=== PATIENT | male | born 1970 | race Caucasian/White ===

== ENCOUNTER 2016-08-22 18:05 | Emergency (ER) | payer SELFPAY ==
[~2016-08-22] VITALS: Ht 180.3 cm; Wt 90.0 kg
[2016-08-22] MEDS ORDERED: ONDANSETRON ODT 4 MG PO ONE (19:00)
[2016-08-22] MEDS ORDERED: SODIUM CHLORIDE 0.9% 1,000ML IVBOLUS ONE (19:00)
[2016-08-22] MEDS ORDERED: THIAMINE 100MG TABLET PO ONE (19:00)
[2016-08-22] MEDS ORDERED: LORazepam 2 MG/ML, 1ML IVPush ONE (19:00)
[2016-08-22 19:24] LABS: ASPARTATE AMINO TRANSFERASE 56 U/L (15-37); BLOOD UREA NITROGEN 9 mg/dL (7-18)
[2016-08-22] MEDS ORDERED: ONDANSETRON ODT 4 MG ONE (20:36)
[2016-08-22] MEDS ORDERED: THIAMINE 100MG TABLET ONE (20:36)
[2016-08-22] MEDS ORDERED: LORazepam 2 MG/ML, 1ML ONE (20:37)
[2016-08-22 22:43] VITALS: BP 121/79
== END 2016-08-22 22:44 | disposition home or self-care (01) ==
LOC: ED 22:39
DX: F10.239 Alcohol dependence with withdrawal, unspecified (principal); F10.229 Alcohol dependence with intoxication, unspecified
CPT/HCPCS: 36415; 80053; 83690; 85025; 93005; 96361; 96374; 99285; J2060; J7030; Q0162

== ENCOUNTER 2016-12-03 09:25 | Emergency (ER) | payer OTHER ==
[~2016-12-03] VITALS: Ht 180.3 cm; Wt 84.4 kg
[2016-12-03 10:39] LABS: HEMATOCRIT 41.3 % (39.2-51.8); HEMOGLOBIN 13.9 g/dL (13.7-18.0); WHITE BLOOD COUNT 7.6 x10^3/uL (3.4-10)
[2016-12-03 10:51] LABS: BLOOD UREA NITROGEN 8 mg/dL (7-18)
[2016-12-03 10:57] LABS: ASPARTATE AMINO TRANSFERASE 14 U/L (15-37)
[2016-12-03 11:34] VITALS: BP 145/106
== END 2016-12-03 11:36 | disposition home or self-care (01) ==
LOC: ED 10:25
DX: R60.0 Localized edema (principal)
CPT/HCPCS: 36415; 71010; 80053; 83880; 85025; 93005; 99285

== ENCOUNTER 2018-06-01 10:40 | Inpatient (IN) | payer OTHER ==
[~2018-06-01] VITALS: Ht 180.3 cm; Wt 89.5 kg
[2018-06-01] MEDS ORDERED: LORazepam 2 MG/ML, 1ML ONE (11:23)
[2018-06-01] MEDS ORDERED: THIAMINE 100MG TABLET ONE (11:23)
[2018-06-01] MEDS ORDERED: ONDANSETRON 2MG/ML, 2ML ONE (11:23)
[2018-06-01] MEDS: LORazepam 2 MG/ML, 1ML IVPush PRN ×2 (11:28→11:53)
[2018-06-01] MEDS ORDERED: ONDANSETRON 2MG/ML, 2ML IVPush ONE (11:30)
[2018-06-01] MEDS ORDERED: SODIUM CHLORIDE FLUSH 10ML SYR IVF ONE (11:30)
[2018-06-01] MEDS ORDERED: THIAMINE 100MG TABLET PO ONE (11:30)
[2018-06-01 11:41] LABS: BASOPHILS # (AUTO) 0.03 x10^3/uL (0-0.1); BASOPHILS % (AUTO) 0 % (0-1); EOSINOPHILS # (AUTO) 0.02 x10^3/uL (0-0.4); EOSINOPHILS % (AUTO) 0 % (1-7); LYMPHOCYTES % (AUTO) 16 % (22-44); MD NO; MEAN CORPUSCULAR HEMOGLOBIN 34.9 pg (27.5-34.5); MEAN CORPUSCULAR HGB CONC 34.8 g/dL (33.2-36.2); MEAN CORPUSCULAR VOLUME 100.2 fL (81-97); MEAN PLATELET VOLUME 8.2 fL (7.4-10.4); MONOCYTES # (AUTO) 0.74 x10^3/uL (0.2-0.8); MONOCYTES % (AUTO) 9 % (2-9); NEUTROPHILS # (AUTO) 6.04 x10^3/uL (1.8-6.8); NEUTROPHILS % (AUTO) 74 % (42-75); PLATELET COUNT 136 x10^3/uL (130-400); RED CELL DISTRIBUTION WIDTH 13.9 % (9.4-14.8)
[2018-06-01 11:53] LABS: ALBUMIN 3.9 g/dL (3.4-5.0); ANION GAP 9 mmol/L (5-15); CHLORIDE 107 mmol/L (98-107)
--- NOTE | 2018-06-01 11:53 | NUR ---
SECOND DOSE OF 1MG ATIVAN GIVEN FOR ETOH WITHDRAWL SYMPTOMS, HOWEVER PATIENT IS IMPROVING AND REPORTS FEELING BETTER. CIWA SCORE OF 7 BEFORE SECOND DOSE OF ATIVAN.
[2018-06-01 11:57] LABS: ALANINE AMINOTRANSFERASE 45 U/L (12-78); ALKALINE PHOSPHATASE 65 U/L (45-117); BILIRUBIN,TOTAL 0.7 mg/dL (0.2-1.0); CREATININE 0.79 mg/dL (0.7-1.3); TOTAL PROTEIN 7.8 g/dL (6.4-8.2)
--- NOTE | 2018-06-01 12:49 | NUR ---
VS UPDATED AND WNL. PT RESTING WITH NO COMPLAINTS. OFFERRED WARM BLANKET BUT PATIENT DENIED. SIDE RAILS UP X 2 AND CALL BUTTON WITHIN REACH.
--- NOTE | 2018-06-01 13:20 | NUR ---
[facility] TELEPHONE HAND-OFF REPORT GIVEN TO RENY ROY. PT READY TO GO TO HOSPITAL ROOM.
[2018-06-01] MEDS ORDERED: POLYETHYLENE GLYCOL 17 GM PACKET PO PRN (13:30)
[2018-06-01] MEDS ORDERED: ONDANSETRON ODT 4 MG PO PRN (13:30)
[2018-06-01] MEDS ORDERED: ONDANSETRON 2MG/ML, 2ML IVPush PRN (13:30)
[2018-06-01] MEDS ORDERED: LABETALOL 5MG/ML, 20ML IVPush PRN (13:30)
[2018-06-01] MEDS ORDERED: LORazepam 1MG TABLET PO PRN ×2 (13:30)
[2018-06-01] MEDS ORDERED: POTASSIUM CHLORIDE 20 MEQ, MAGNESIUM SULFATE 1 GM, FOLIC ACID 1 MG, THIAMINE 200 MG, MV... IV SCH (13:30)
[2018-06-01] MEDS ORDERED: LORazepam 2 MG/ML, 1ML IV PRN ×5 (13:30)
[2018-06-01 13:36] LABS: FREE T4 (FREE THYROXINE) 0.75 ng/dL (0.76-1.46)
[2018-06-01 14:31] VITALS: BP 145/85
[2018-06-01] MEDS: SODIUM CHLORIDE 0.9% 1,000 ML IV SCH (14:43)
[2018-06-01] MEDS ORDERED: CHLORDIAZEPOXIDE 25 MG CAPSULE PO PRN (15:00)
[2018-06-01] MEDS: POTASSIUM CHLORIDE 20 MEQ, MAGNESIUM SULFATE 1 GM, FOLIC ACID 1 MG, MVI ADULT 10 ML in ... IV SCH (15:01)
[2018-06-01] MEDS ORDERED: NICOTINE 7 MG/24 HR PATCH.TD24 TD SCH (15:30)
[2018-06-01] MEDS: LORazepam 1MG TABLET PO PRN (17:42)
[2018-06-01 19:28] VITALS: BP 115/72
[2018-06-01] MEDS ORDERED: FAMOTIDINE 20 MG/2 ML IVPush SCH (21:00)
[2018-06-02] MEDS: LORazepam 1MG TABLET PO PRN ×2 (00:03→07:07)
[2018-06-02] MEDS: SODIUM CHLORIDE 0.9% 1,000 ML IV SCH ×3 (01:00→17:03)
[2018-06-02 02:17] VITALS: BP 120/70
[2018-06-02 04:26] LABS: BASOPHILS # (AUTO) 0.04 x10^3/uL (0-0.1); BASOPHILS % (AUTO) 1 % (0-1); EOSINOPHILS # (AUTO) 0.17 x10^3/uL (0-0.4); EOSINOPHILS % (AUTO) 2 % (1-7); LYMPHOCYTES # (AUTO) 1.47 x10^3/uL (1-3.4); LYMPHOCYTES % (AUTO) 21 % (22-44); MD NO; MEAN CORPUSCULAR HEMOGLOBIN 34.6 pg (27.5-34.5); MEAN CORPUSCULAR HGB CONC 33.8 g/dL (33.2-36.2); MEAN CORPUSCULAR VOLUME 102.2 fL (81-97); MEAN PLATELET VOLUME 8.5 fL (7.4-10.4); MONOCYTES # (AUTO) 0.91 x10^3/uL (0.2-0.8); MONOCYTES % (AUTO) 13 % (2-9); NEUTROPHILS # (AUTO) 4.55 x10^3/uL (1.8-6.8); NEUTROPHILS % (AUTO) 64 % (42-75); PLATELET COUNT 120 x10^3/uL (130-400); RED BLOOD COUNT 3.78 x10^6/uL (4.38-5.82); RED CELL DISTRIBUTION WIDTH 14.1 % (9.4-14.8)
[2018-06-02 05:04] LABS: ALANINE AMINOTRANSFERASE 33 U/L (12-78); ALBUMIN 3.1 g/dL (3.4-5.0); ALKALINE PHOSPHATASE 49 U/L (45-117); ANION GAP 6 mmol/L (5-15); BILIRUBIN,TOTAL 0.7 mg/dL (0.2-1.0); CALCIUM 7.7 mg/dL (8.5-10.1); CHLORIDE 110 mmol/L (98-107); CREATININE 0.81 mg/dL (0.7-1.3); FREE T4 (FREE THYROXINE) 0.69 ng/dL (0.76-1.46); TOTAL PROTEIN 6.4 g/dL (6.4-8.2)
[2018-06-02 08:30] VITALS: BP 133/82
[2018-06-02] MEDS: FAMOTIDINE 20 MG TABLET PO SCH ×2 (09:13→21:11)
[2018-06-02] MEDS: THIAMINE 100MG TABLET PO SCH (09:13)
[2018-06-02] MEDS: SENNA/DOCUSATE TABLET PO SCH (09:13)
[2018-06-02] MEDS ORDERED: CYANOCOBALAMIN 1,000 MCG/ML, 1ML IM ONE (09:30)
[2018-06-02] MEDS: CHLORDIAZEPOXIDE 25 MG CAPSULE PO SCH ×3 (09:54→21:11)
[2018-06-02] MEDS: LORazepam 0.5MG TABLET PO PRN ×4 (09:54→21:18)
[2018-06-02] MEDS: NICOTINE 14MG/24 HR PATCH.TD24 TD SCH (09:55)
[2018-06-02 13:43] VITALS: BP 150/76
[2018-06-02] MEDS: POTASSIUM CHLORIDE 20 MEQ, MAGNESIUM SULFATE 1 GM, FOLIC ACID 1 MG, MVI ADULT 10 ML in ... IV SCH (17:02)
[2018-06-02 19:30] VITALS: BP 92/55
[2018-06-03 01:15] VITALS: BP 134/85
[2018-06-03] MEDS: SODIUM CHLORIDE 0.9% 1,000 ML IV SCH (06:00)
[2018-06-03] MEDS: LORazepam 1MG TABLET PO PRN ×4 (06:38→14:48)
[2018-06-03 07:26] VITALS: BP 138/83
[2018-06-03] MEDS: SENNA/DOCUSATE TABLET PO SCH (09:18)
[2018-06-03] MEDS: THIAMINE 100MG TABLET PO SCH (09:19)
[2018-06-03] MEDS: CHLORDIAZEPOXIDE 25 MG CAPSULE PO SCH ×2 (09:19→16:47)
[2018-06-03] MEDS: FAMOTIDINE 20 MG TABLET PO SCH (09:20)
[2018-06-03] MEDS: NICOTINE 14MG/24 HR PATCH.TD24 TD SCH (09:20)
[2018-06-03 12:26] VITALS: BP 144/95
[2018-06-03] MEDS: POTASSIUM CHLORIDE 20 MEQ, MAGNESIUM SULFATE 1 GM, FOLIC ACID 1 MG, MVI ADULT 10 ML in ... IV SCH (14:43)
== END 2018-06-03 17:42 | disposition left against medical advice (07) | DRG 392 ==
LOC: ED 11:25 → EDIP 12:38 → 4WST 13:45
PROVIDERS: ADMIT Hospitalist; ATTEND Hospitalist
DX: K29.20 Alcoholic gastritis without bleeding (principal); F10.121 Alcohol abuse with intoxication delirium; D75.89 Other specified diseases of blood and blood-forming organs; E86.0 Dehydration; F17.200 Nicotine dependence, unspecified, uncomplicated; F41.9 Anxiety disorder, unspecified; Y90.1 Blood alcohol level of 20-39 mg/100 ml; I10 Essential (primary) hypertension; Z87.11 Personal history of peptic ulcer disease; Z53.21 Procedure and treatment not carried out due to patient leaving prior to being seen by health care provider
CPT/HCPCS: 36415; 99285; J7042; 80053; 80307; 82607; 83735; 84100; 84439; 84443; 85025; 93005; 96374; 96375; G0378; J2405; J3475; J3480; J2060; J3420; J7030

== ENCOUNTER 2019-09-17 11:21 | Emergency (ER) | payer MEDICAID ==
[~2019-09-17] VITALS: Ht 180.3 cm; Wt 84.7 kg
[2019-09-17 11:24] VITALS: BP 127/86
--- NOTE | 2019-09-17 11:40 | NUR ---
PT INQUIRING ABOUT COVID TEST. MD AT BEDSIDE.
[2019-09-17] MEDS ORDERED: DEXAMETHASONE 4 MG TABLET ONE (11:47)
[2019-09-17] MEDS ORDERED: DEXAMETHASONE 4 MG TABLET PO ONE (12:00)
--- NOTE | 2019-09-17 12:11 | NUR ---
Patient/Caregiver given discharge instructions and they have confirmed that they understand the instructions. Patient ambulatory with steady gait.
== END 2019-09-17 12:13 | disposition home or self-care (01) ==
LOC: ED 11:48
DX: J02.8 Acute pharyngitis due to other specified organisms (principal); Z20.828 Contact with and (suspected) exposure to other viral communicable diseases; T78.3XXA Angioneurotic edema, initial encounter; F17.200 Nicotine dependence, unspecified, uncomplicated; B97.89 Other viral agents as the cause of diseases classified elsewhere
CPT/HCPCS: 99283; U0001

== ENCOUNTER 2019-09-22 09:16 | Emergency (ER) | payer MEDICAID ==
[~2019-09-22] VITALS: Ht 180.3 cm; Wt 86.1 kg
[2019-09-22 09:18] VITALS: BP 116/70
[2019-09-22] MEDS ORDERED: HYDROcodone/APAP 5/325 TABLET ONE (09:41)
[2019-09-22] MEDS ORDERED: KETOROLAC 30 MG/1 ML ONE (09:41)
[2019-09-22] MEDS ORDERED: HYDROcodone/APAP 5/325 TABLET PO ONE (10:00)
[2019-09-22] MEDS ORDERED: KETOROLAC 30 MG/1 ML IM ONE (10:00)
[2019-09-22 10:13] LABS: ALANINE AMINOTRANSFERASE 37 U/L (12-78); ALBUMIN 3.4 g/dL (3.4-5.0); ANION GAP 10 mmol/L (5-15); CALCIUM 8.9 mg/dL (8.5-10.1); CHLORIDE 108 mmol/L (98-107); CREATININE 0.88 mg/dL (0.7-1.3)
[2019-09-22 10:17] LABS: ALKALINE PHOSPHATASE 71 U/L (45-117); BILIRUBIN,TOTAL 0.7 mg/dL (0.2-1.0); TOTAL PROTEIN 7.5 g/dL (6.4-8.2)
[2019-09-22 10:25] LABS: BASOPHILS # (AUTO) 0.03 x10^3/uL (0-0.1); BASOPHILS % (AUTO) 0 % (0-1); EOSINOPHILS % (AUTO) 1 % (1-7); LYMPHOCYTES # (AUTO) 1.67 x10^3/uL (1-3.4); LYMPHOCYTES % (AUTO) 17 % (22-44); MD NO; MEAN CORPUSCULAR HEMOGLOBIN 34.3 pg (27.5-34.5); MEAN CORPUSCULAR HGB CONC 33.9 g/dL (33.2-36.2); MEAN CORPUSCULAR VOLUME 101.3 fL (81-97); MEAN PLATELET VOLUME 8.6 fL (7.4-10.4); MONOCYTES # (AUTO) 1.13 x10^3/uL (0.2-0.8); MONOCYTES % (AUTO) 11 % (2-9); NEUTROPHILS % (AUTO) 71 % (42-75); PLATELET COUNT 195 x10^3/uL (130-400); RED BLOOD COUNT 4.39 x10^6/uL (4.38-5.82); RED CELL DISTRIBUTION WIDTH 14.4 % (9.4-14.8)
== END 2019-09-22 11:04 | disposition home or self-care (01) ==
LOC: ED 10:01
DX: M10.071 Idiopathic gout, right ankle and foot (principal); M79.674 Pain in right toe(s); M13.171 Monoarthritis, not elsewhere classified, right ankle and foot; F17.200 Nicotine dependence, unspecified, uncomplicated
CPT/HCPCS: 36415; 73630; 80053; 84550; 85025; 96372; 99284; J1885

== ENCOUNTER 2019-11-18 14:00 | Emergency (ER) | payer MEDICAID ==
[~2019-11-18] VITALS: Ht 180.3 cm; Wt 86.8 kg
[2019-11-18 14:07] VITALS: BP 144/112
--- NOTE | 2019-11-18 14:24 | NUR ---
BRODY INIGUEZ AT BEDSIDE FOR INITIAL ASSESSMENT.
--- NOTE | 2019-11-18 14:55 | NUR ---
pt presents to ED with c/o right groin pain and penile discharge, no mass or bulge noted to groin on exam. pt is a&o, resps even and unlabored, nadn. pt instructed to provide clean catch ua, supplies at bedside. pt awaiting us, lab and dispo. report given to RENY Elizalde who is assuming care.
--- NOTE | 2019-11-18 14:58 | NUR ---
recieved report form Alison OGLESBY. pt aware urine sample is needed, has cup and wipes. will continue to monitor.
[2019-11-18 15:44] LABS: MICROSCOPIC NOT IND
[2019-11-18] MEDS ORDERED: CEFTRIAXONE 250 MG IM ONE (16:00)
[2019-11-18] MEDS ORDERED: AZITHROMYCIN 500 MG TABLET PO ONE (16:00)
[2019-11-18] MEDS ORDERED: CEFTRIAXONE 250 MG ONE (16:16)
[2019-11-18] MEDS ORDERED: AZITHROMYCIN 250 MG TABLET ONE (16:17)
--- NOTE | 2019-11-18 17:00 | NUR ---
PT ASKING NOW TO BE EVALUATED FOR HIS GOUT IN RIGHT FOOT. STATED HE IS UNABLE TO GET INTO SEE PRIMARY CARE DUE TO INSURANCE. ERP AWARE. WILL LOOK IN TO GOUT SITUATION.
== END 2019-11-18 18:03 | disposition home or self-care (01) ==
LOC: ED 15:58
DX: K40.90 Unilateral inguinal hernia, without obstruction or gangrene, not specified as recurrent (principal); R10.2 Pelvic and perineal pain; B35.6 Tinea cruris; R05 Cough
CPT/HCPCS: 76857; 81003; 87491; 87591; 96372; 99284; J0696

== ENCOUNTER 2019-12-11 05:43 | Day surgery (SDC) | payer MEDICAID ==
[~2019-12-11] VITALS: Ht 180.3 cm; Wt 85.2 kg
[~2019-12-11 05:43] MED LIST: HYDR-3240 PO; INDO25CA22 PO
[2019-12-11] MEDS ORDERED: LACTATED RINGERS 1,000 ML IV SCH (06:10)
[2019-12-11 06:21] VITALS: BP 125/92
[2019-12-11] MEDS ORDERED: CHLORHEXIDINE 15 ML UDC MM ONE (06:30)
[2019-12-11] MEDS ORDERED: LIDOCAINE-MPF 1%, 2ML INFIL ONE (06:30)
[2019-12-11] MEDS ORDERED: BUPIVACAINE/PF-EPI 0.5% 1:200K ONE (06:46)
[2019-12-11] MEDS ORDERED: DEXAMETHASONE 4 MG/ML, 1ML ONE (06:55)
[2019-12-11] MEDS ORDERED: NEOSTIGMINE 1 MG/ML, 10ML ONE (06:55)
[2019-12-11] MEDS ORDERED: FENTANYL PF 100 MCG/2ML ONE (06:55)
[2019-12-11] MEDS ORDERED: GLYCOPYRROLATE 0.2MG/1ML, 5ML ONE (06:55)
[2019-12-11] MEDS ORDERED: PROPOFOL 10 MG/ML, 20ML ONE (06:55)
[2019-12-11] MEDS ORDERED: MIDAZOLAM 1 MG/ML, 2ML ONE (06:55)
[2019-12-11] MEDS ORDERED: CEFAZOLIN 1,000 MG ONE (06:55)
[2019-12-11] MEDS ORDERED: ONDANSETRON 2MG/ML, 2ML ONE (06:55)
[2019-12-11] MEDS ORDERED: ROCURONIUM 10MG/ML,5ML ONE (06:55)
[2019-12-11] MEDS ORDERED: SUCCINYLCHOLINE 20 MG/ML, 10ML ONE (06:55)
[2019-12-11] MEDS ORDERED: MEPERIDINE/PF 25MG/0.5ML IVPush PRN (07:30)
[2019-12-11] MEDS ORDERED: OXYcodone 5 MG/5 ML ORAL.SOL UDC PO PRN (07:30)
[2019-12-11] MEDS ORDERED: HYDROcodone/APAP 7.5-325MG/15ML UDC PO PRN (07:30)
[2019-12-11] MEDS ORDERED: FENTANYL PF 100 MCG/2ML IV PRN (07:30)
[2019-12-11] MEDS ORDERED: HYDROmorphone 1 MG/ML, 1ML INJ IVPush PRN (07:30)
[2019-12-11] MEDS ORDERED: PROMETHAZINE 25 MG/ML, 1ML IVPush PRN (07:30)
== END 2019-12-11 07:45 | disposition home or self-care (01) ==
LOC: OUT 05:43
PROVIDERS: ATTEND Surgery
DX: K40.90 Unilateral inguinal hernia, without obstruction or gangrene, not specified as recurrent (principal); Z53.8 Procedure and treatment not carried out for other reasons; Z20.828 Contact with and (suspected) exposure to other viral communicable diseases; R21 Rash and other nonspecific skin eruption
CPT/HCPCS: 36415; 87635; J0330; J0690; J1100; J2405; J2704; J2710; J7120; J2250; J3010

== ENCOUNTER 2020-01-21 20:01 | Emergency (ER) | payer MEDICAID ==
[~2020-01-21] VITALS: Ht 180.3 cm; Wt 84.0 kg
[2020-01-21] MEDS ORDERED: MORPHINE SULFATE 4 MG/ML, 1ML ONE (20:16)
[2020-01-21] MEDS ORDERED: ONDANSETRON 2MG/ML, 2ML ONE (20:16)
[2020-01-21] MEDS ORDERED: PROPOFOL 10 MG/ML, 20ML ONE (20:16)
[2020-01-21] MEDS ORDERED: SODIUM CHLORIDE 0.9% 1,000ML IVBOLUS ONE (20:30)
[2020-01-21] MEDS ORDERED: ONDANSETRON 2MG/ML, 2ML IVPush ONE (20:30)
[2020-01-21] MEDS ORDERED: PROPOFOL 10 MG/ML, 20ML IVPush ONE (20:30)
[2020-01-21] MEDS ORDERED: MORPHINE SULFATE 4 MG/ML, 1ML IVPush PRN (20:30)
[2020-01-21] MEDS ORDERED: SODIUM CHLORIDE FLUSH 10ML SYR IVF ONE (20:30)
[2020-01-21 21:14] VITALS: BP 121/91
== END 2020-01-21 21:18 | disposition home or self-care (01) ==
LOC: ED 21:12
DX: S43.084A Other dislocation of right shoulder joint, initial encounter (principal); M10.9 Gout, unspecified; F17.200 Nicotine dependence, unspecified, uncomplicated; Z87.11 Personal history of peptic ulcer disease; X50.0XXA Overexertion from strenuous movement or load, initial encounter; Y93.89 Activity, other specified; Y92.89 Other specified places as the place of occurrence of the external cause; Y99.8 Other external cause status
CPT/HCPCS: 23650; 73030; 96374; 96375; 99152; 99285; J2270; J2405; J2704; J7030

== ENCOUNTER 2020-01-31 04:27 | Emergency (ER) | payer MEDICAID ==
[~2020-01-31] VITALS: Ht 180.3 cm; Wt 86.0 kg
--- NOTE | 2020-01-31 04:45 | NUR ---
pt here for angioedema in face, lips, and tongue, worsening over the last 2 hrs. denies allergies and no new meds. tolerating secretions at this time, vss. denies difficulty breathing. rashes on right leg per pt
[2020-01-31] MEDS ORDERED: methylPREDNISolone SOD SUCC 125 MG/2 ML ONE (04:59)
[2020-01-31] MEDS ORDERED: DIPHENHYDRAMINE 50 MG/ML, 1ML ONE (04:59)
[2020-01-31] MEDS ORDERED: EPINEPHRINE 1 MG/ML, 1ML ONE (04:59)
[2020-01-31] MEDS ORDERED: DIPHENHYDRAMINE 50 MG/ML, 1ML IVPush ONE (05:00)
[2020-01-31] MEDS ORDERED: methylPREDNISolone SOD SUCC 125 MG/2 ML IVPush ONE (05:00)
[2020-01-31] MEDS ORDERED: FAMOTIDINE 20 MG/2 ML ONE (05:00)
[2020-01-31] MEDS ORDERED: FAMOTIDINE 20 MG/2 ML IVPush ONE (05:00)
[2020-01-31] MEDS ORDERED: EPINEPHRINE 1 MG/ML, 1ML SQ ONE (05:00)
--- NOTE | 2020-01-31 05:15 | NUR ---
PT ALSO COMPLAINS OF HERNIA ON R SIDE OF GROIN. MD AT BEDSIDE TO ASSESS
[2020-01-31 05:19] LABS: BASOPHILS % (AUTO) 0 % (0-1); EOSINOPHILS % (AUTO) 1 % (1-7); LYMPHOCYTES % (AUTO) 19 % (22-44); MEAN CORPUSCULAR HEMOGLOBIN 33.5 pg (27.5-34.5); MEAN CORPUSCULAR HGB CONC 34.3 g/dL (33.2-36.2); MEAN PLATELET VOLUME 7.7 fL (7.4-10.4); MONOCYTES % (AUTO) 6 % (2-9); NEUTROPHILS % (AUTO) 74 % (42-75); PLATELET COUNT 199 x10^3/uL (130-400); RED BLOOD COUNT 4.76 x10^6/uL (4.38-5.82); RED CELL DISTRIBUTION WIDTH 13.6 % (9.4-14.8)
[2020-01-31 05:34] LABS: ALBUMIN 3.7 g/dL (3.4-5.0); ANION GAP 10 mmol/L (5-15); CALCIUM 9.1 mg/dL (8.5-10.1); CHLORIDE 106 mmol/L (98-107)
[2020-01-31 05:38] LABS: ALANINE AMINOTRANSFERASE 26 U/L (12-78); ALKALINE PHOSPHATASE 74 U/L (45-117); BILIRUBIN,TOTAL 1.3 mg/dL (0.2-1.0); CREATININE 1.07 mg/dL (0.7-1.3); TOTAL PROTEIN 7.6 g/dL (6.4-8.2)
[2020-01-31 06:10] LABS: MD SCAN
--- NOTE | 2020-01-31 06:28 | NUR ---
[facility]P STARTED AT 0625, CONSENT SIGNED BY MD AND PATIENT, ALL QUESTIONS ANSWERED AND RISKS VS BENEFITS EXPLAINED. [facility] ORDERED EMERGENTLY, "EMERGENCY BLOOD RELEASE/MASSIVE TRANSFUSUION RECORD" PLACED IN PAPER CHART. 2 RN VERIFIED PRIOR TO STARTING, VITAL SIGNS PER PROTOCOL PERFORMED. PT ATTACHED TO ALL MONITORING DEVICES.
--- NOTE | 2020-01-31 06:33 | NUR ---
PT REPORTS "I FEEL LIKE THE SWEELING IS GOING DOWN", DENIES DROOLING. RESTING COMFORTABLY, RATES FACIAL PAIN 4/10.
--- NOTE | 2020-01-31 06:46 | NUR ---
FFP FINISHED, PT TOLERATED WELL. FACIAL EDEMA STILL PRESENT IN LIPS, CHEEKS, AND TONGUE. AIRWAY PATENT, NO SLURRING OR DROOLING NOTED. PT STATES HE FEELS LIKE EDEMA IS GETTING BETTER. PT RESTING COMFORTABLY, CALL LIGHT WITHIN REACH.
--- NOTE | 2020-01-31 06:58 | NUR ---
BEDSIDE REPORT RECEIVED FROM JAYA OGLESBY
--- NOTE | 2020-01-31 07:01 | NUR ---
PT SITTING ON GURNEY COMFORTABLY. NAD, VSS. PT STATES "I FEEL LIKE THE SWELLING IS GOING DOWN A LITTLE AND I FEEL A LITTLE BETTER". PT DENIES ANY ADDITIONAL NEEDS AT THIS TIME. CALL LIGHT AND PERSONAL BELONGINGS WITHIN REACH. WILL CONTINUE TO MONITOR.
--- NOTE | 2020-01-31 08:02 | NUR ---
PT SITTING ON GURNEY COMFORTABLY WITH EYES CLOSED. NAD, VSS. PT STATES "IT KEEPS FEELING BETTER, THE PAIN IN MY LIPS IS GETTING A LITTLE BETTER TOO". PT DENIES ANY ADDITIONAL NEEDS AT THIS TIME. CALL LIGHT AND PERSONAL BELONGINGS WITHIN REACH. WILL CONTINUE TO MONITOR.
[2020-01-31 09:15] VITALS: BP 108/78
--- NOTE | 2020-01-31 09:29 | NUR ---
Patient given discharge instructions and they have confirmed that they understand the instructions. Patient ambulatory with steady gait.
== END 2020-01-31 09:17 | disposition home or self-care (01) ==
LOC: ED 05:22
DX: T78.3XXA Angioneurotic edema, initial encounter (principal); R00.0 Tachycardia, unspecified; R22.0 Localized swelling, mass and lump, head; F17.200 Nicotine dependence, unspecified, uncomplicated
CPT/HCPCS: 36415; 71045; 80053; 85025; 86850; 86900; 93005; 96372; 96374; 96375; 99285; J0171; J1200; J2930; P9017

== ENCOUNTER → 2020-05-31 | Outpatient (CLI) | payer MEDICAID ==
[~2020-05-31] MED LIST changes: +CETI10TA76 PO; +FEXO180T72 PO; +HYDR-1067 PO; -HYDR-3240 PO
[2020-05-31 11:42] LABS: BASOPHILS % (AUTO) 2 % (0-1); EOSINOPHILS % (AUTO) 4 % (1-7); LYMPHOCYTES % (AUTO) 25 % (22-44); MEAN CORPUSCULAR HEMOGLOBIN 35.6 pg (27.5-34.5); MEAN CORPUSCULAR HGB CONC 34.7 g/dL (33.2-36.2); MEAN PLATELET VOLUME 8.3 fL (7.4-10.4); MONOCYTES % (AUTO) 14 % (2-9); NEUTROPHILS % (AUTO) 55 % (42-75); PLATELET COUNT 96 x10^3/uL (130-400); RED BLOOD COUNT 4.28 x10^6/uL (4.38-5.82); RED CELL DISTRIBUTION WIDTH 15.3 % (9.4-14.8)
[2020-05-31 11:47] LABS: ALBUMIN 3.9 g/dL (3.4-5.0); ANION GAP 11 mmol/L (5-15); CALCIUM 8.8 mg/dL (8.5-10.1); CHLORIDE 110 mmol/L (98-107)
[2020-05-31 11:51] LABS: ALANINE AMINOTRANSFERASE 94 U/L (12-78); ALKALINE PHOSPHATASE 72 U/L (45-117); BILIRUBIN,TOTAL 0.6 mg/dL (0.2-1.0); CREATININE 0.84 mg/dL (0.7-1.3); TOTAL PROTEIN 7.6 g/dL (6.4-8.2)
[2020-05-31 12:16] LABS: MD SCAN
== END | disposition home or self-care (01) ==
LOC: STAR 09:41
PROVIDERS: ATTEND Surgery
DX: Z01.812 Encounter for preprocedural laboratory examination (principal); Z20.822 Contact with and (suspected) exposure to COVID-19
CPT/HCPCS: 71046; 80053; 85025; 87635; 93005

== ENCOUNTER 2020-08-13 23:01 | Emergency (ER) | payer MEDICAID ==
[~2020-08-13] VITALS: Ht 175.3 cm; Wt 86.0 kg
[~2020-08-13 23:01] MED LIST changes: -HYDR-1067 PO; +HYDR-2214 PO
--- NOTE | 2020-08-13 23:58 | NUR ---
Patient/Caregiver given discharge instructions and they have confirmed that they understand the instructions. Patient ambulatory with steady gait.
[2020-08-14 00:02] VITALS: BP 145/65
== END 2020-08-14 00:04 | disposition home or self-care (01) ==
LOC: ED 23:20
DX: R21 Rash and other nonspecific skin eruption (principal); F17.210 Nicotine dependence, cigarettes, uncomplicated; F10.129 Alcohol abuse with intoxication, unspecified; Z72.9 Problem related to lifestyle, unspecified; Y90.0 Blood alcohol level of less than 20 mg/100 ml
CPT/HCPCS: 99283